=== PATIENT | male | born 1965 | race Caucasian/White ===

== ENCOUNTER 2020-06-17 13:13 | Inpatient (IN) | payer BC ==
[~2020-06-17] VITALS: Ht 182.9 cm; Wt 109.8 kg
[2020-06-17 13:54] VITALS: BP 136/88
[2020-06-17] MEDS ORDERED: METOPROLOL IV PUSH 5 MG/5 ML VIAL. IVP ONE (14:00)
[2020-06-17] MEDS: MORPHINE SULFATE 2 MG/ML VIAL. IV PRN ×2 (14:16→20:36)
--- NOTE | 2020-06-17 14:26 | RAD ---
EXAM: XR CHEST 1V 06/17/2020 2:00 PM CLINICAL INDICATION: Chest pain COMPARISON: None TECHNIQUE: AP upright view the chest FINDINGS: The heart and mediastinum are normal. Lungs are adequately expanded. No consolidation, ple ural effusion, or pneumothorax. No acute osseous abnormality. IMPRESSION: No acute cardiopulmonary abnormality. Electronically signed by: Mikaela Marquez MD (06/17/2020 2:23 PM) [id number]
[2020-06-17] MEDS ORDERED: METF10007 PO (15:00)
[2020-06-17] MEDS ORDERED: PREG100C PO (15:00)
[2020-06-17] MEDS ORDERED: TRAZ-118 PO (15:00)
[2020-06-17] MEDS ORDERED: PREG50CA91 PO (15:00)
[2020-06-17] MEDS ORDERED: LISI1TAB37 PO (15:00)
[2020-06-17] MEDS ORDERED: DIGOXIN IV 500 MCG/2 ML AMPUL. IV ONE (15:30)
[2020-06-17] MEDS ORDERED: DEXTROSE 50% 25 GM / 50ML DISP.SYRIN. IV PRN (15:30)
[2020-06-17 15:38] LABS: BASO # 0.1 x10^3/uL (0.0-0.2); BASO % 1 % (0-3); EOS # 0.4 x10^3/uL (0.0-0.7); EOS % 3 % (0-3); HEMATOCRIT 47.1 % (39.0-53.0); HEMOGLOBIN 16.1 g/dL (13.0-17.5); LYMPH # 3.6 x10^3/uL (1.0-4.8); LYMPH % 32 % (24-48); MEAN CORPUSCULAR HEMOGLOBIN 29 pg (25-35); MEAN CORPUSCULAR HGB CONC 34 g/dL (31-37); MEAN CORPUSCULAR VOLUME 86 fL (79-100); MONO # 0.9 x10^3/uL (0.0-1.1); MONO % 8 % (0-9); NEUT # 6.3 x10^3/uL (1.8-7.7); NEUT % 56 % (31-73); PLATELET COUNT 318 x10^3/uL (140-400); RED BLOOD COUNT 5.47 x10^6/uL (4.30-5.70); RED CELL DISTRIBUTION WIDTH 13.5 % (11.5-14.5); WHITE BLOOD COUNT 11.3 x10^3/uL (4.0-11.0)
[2020-06-17 15:41] LABS: BILIRUBIN,URINE NEGATIVE (NEG); CLARITY,URINE CLEAR; COLOR,URINE YELLOW; NITRITE,URINE NEGATIVE (NEG); PH,URINE 7.5 (<5.0-8.0); PROTEIN,URINE NEGATIVE (NEG-TRACE); UROBILINOGEN,URINE 0.2 mg/dL (0.2 mg/dL)
[2020-06-17 15:47] LABS: BARBITURATES NEG (NEG); BENZODIAZEPINES NEG (NEG); CANNABINOIDS POS (NEG); COCAINE NEG (NEG); METHADONE NEG (NEG); OPIATES POS (NEG); PHENCYCLIDINE NEG (NEG)
[2020-06-17 15:48] LABS: AMPHETAMINE/METHAMPHETAMINE NEG (NEG)
[2020-06-17] MEDS: METOPROLOL TART IMMED RELEASE 25 MG TABLET. PO SCH ×3 (16:09→23:53)
[2020-06-17] MEDS ORDERED: ASPIRIN ENTERIC COATED 325 MG TABLET.DR. PO ONE (16:15)
--- NOTE | 2020-06-17 16:23 | PDOC2 ---
CHAVA AGUILLON INSOLE BOTTOM FILLER 06/17/20 1623: CARDIAC CONSULT DATE OF CONSULT Date of Consult DATE: 06/17/20 TIME: 15:23 REASON FOR CONSULT Reason for Consult: Chest pain, tachy REFERRING PHYSICIAN Referring Physician: Valentin SOURCE Source: Chart review, Patient HISTORY OF PRESENT ILLNESS HISTORY OF PRESENT ILLNESS This is a pleasant 55 yo male admitted for complains of chest pain and palpitations. Reports that he was having midchest burning pressure this morning and palpitations. No nausea or vomiting. No fever or chills. He was then seen in the PCPs office and was told to go to the hospital. His HR was in the 140s and upon EKG he was on atrial flutter. He was seen in 05/13/2020 at PCPs office due to neuropathy symptoms and high BP with his DM for the first time as he has not seen a Dr. in about 8 yrs. At that time he was noted with HR in the 120s but reported no EKG was performed at that time. He has known DM2, HTN and HLP but has not medicated self since about 8 yrs ago as he did not like some of the side effects such as diarrhea particularly the metformin. Since last yr he has been checking his BP with his mothers BP machine and sometimes notes his SBP in the 200s. Also noted that his HR is in the 140s at times. The last he checked his readings was 2 weeks and it was the same. 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 His chest discomfort has been going on in the last 2 months. No falls, passing out or frequent dizziness. No diaphoresis, jaw tightness or arm heaviness this morning when he had his symptoms. He did have bilateral HAs at times. Reports of intermittent episodes of light flashes and dark spots and loss of vision to the outer part of his right eye visual field and last time this happened was a week ago and started about a month ago. The last he was checked by an eye doctor was 06/2019. Denies any past hx of CAD, VTE, bleeding issues, arrhythmias, CVA. No prior MVA. He did fall about a week ago but no injury and this is due to his leg dropping into a hole in the ground. No anosmia, ageusia, and no respiratory symptoms. No known prior exposure to Covid- 19 PAST MEDICAL HISTORY Cardiovascular: HTN, Hyperlipidemia Pulmonary: No pertinent hx CENTRAL NERVOUS SYSTEM: Carpal Tunnel Syndrome, Periperal neuropathy GI: No pertinent hx Heme/Onc: No pertinent hx Hepatobiliary: No pertinent hx Psych: No pertinent hx Musculoskeletal: Osteoarthritis Rheumatologic: No pertinent hx Infectious disease: Other (perineal abscess) ENT: No pertinent hx Renal/: Chronic renal insuff Endocrine: Diabetes (2) Dermatology: No pertinent hx PAST SURGICAL HISTORY Past Surgical History: Tonsillectomy FAMILY HISTORY Family History: Coronary Artery Disease (mother and cardiac arrest in her 60s), Other (brain aneursys grandmother) SOCIAL HISTORY Smoke: 1 pack per day (>20 yrs) ALCOHOL: other (1-2 beer daily) Drugs: Marijuana Lives: with Family CURRENT MEDICATIONS CURRENT MEDICATIONS Current Medications Medications (Trade) Dose Ordered Sig/Sukumar Route PRN Reason Start Time Stop Time Status Last Admin Dose Admin Metoprolol Tartrate (Lopressor Vial) 5 mg 1X ONCE IVP 06/17/20 14:00 06/17/20 14:03 DC 06/17/20 14:14 Morphine Sulfate (Morphine Sulfate) 2 mg PRN Q2HR PRN IV PAIN 06/17/20 14:15 06/17/20 14:16 ALLERGIES ALLERGIES: Coded Allergies: No Known Drug Allergies (Unverified , 06/17/20) ROS Review of System 14 point ROS evaluated with pertinent positives noted per HPI PHYSICAL EXAM General: Alert, Oriented X3, Cooperative, No acute distress HEENT: Atraumatic, Mucous membr. moist/pink Lungs: Clear to auscultation, Normal air movement Heart: Regular rate (atrial flutter with RVR), No murmurs Abdomen: Soft, No tenderness Extremities: No cyanosis, No edema Skin: Other (RLE abrasions from fall) Neuro: Normal speech, Sensation intact Psych/Mental Status: Mental status NL, Mood NL MUSCULOSKELETAL: Osteoarthritic changes both hands VITALS/I&O VITALS/I&O: Vital Signs Date Time Temp Pulse Resp B/P (MAP) Pulse Ox O2 Delivery O2 Flow Rate FiO2 06/17/20 14:46 97 Room Air 06/17/20 14:29 134 06/17/20 13:54 97.5 18 136/88 (104) 97.5 STRESS TEST STRESS TEST [facility] 07/2009 RESTING 2D ECHO Left Ventricular Ejection Fraction: 55% Mild Concentric Left Ventricular Hypertrophy Normal Left Ventricular Size Mild Left Atrial Enlargement Normal Right Ventricular Size Normal Right Atrial Size Normal Aortic Valve Normal Mitral Valve Normal Tricuspid Valve Normal Pulmonic Valve No Effusions, Masses or Thrombi LB PROTOCOL STRESS ECG Baseline ECG: Sinus Rhythm. HR: 91 bpm. BP: 152/88 mmHg. Exercise Duration: 8 minutes 00 seconds. Reason Test Stopped: Fatigue. HR Achieved: 147 bpm (84% of Predicted Max HR). BP at Peak Stress: 200/78 mmHg. Workload Achieved: 10.1 METs. HR Recovery (1st Min): [address]-T Changes Noted With Exercise. Good Exercise Tolerance POST EXERCISE ECHO Hyperdynamic Left Ventricular Response To Exercise Ejection Fraction Increases With Exercise Left Ventricular Volume Decreases No New Regional Wall Motion Abnormalities SUMMARY Normal Blood Pressure And Heart Rate Response To Stress Normal Stress Electrocardiogram Normal Stress Echo Without Evidence For Ischemia Normal Ventricular Function With No Regional Wall Motion Abnormalities Valve Structures Are Unremarkable No Masses, Thrombi or Effusions Seen ASSESSMENT/PLAN ASSESSMENT/PLAN 1. Atrial flutter with RVR with underlying RBBB: new finding, likely has been going for a while 2. HTN: reported labile episodes at home 3. HLP 4. DM2 5. Tobaccoism 6. Obesity 7. CKD? 8. Noncompliance: no meds for at least 8 yrs until started by PCP on early May 2020 9. Marijuana use 10. Chest pain: possibly from RVR 11. Intermittent visual changes: presently ok but at times he loses vision to the outer part of his right eye and has flashes and black dot. No other neuro symptoms. Recommendations 1. TTE in AM when HR is controlled 2. UDS. Check TSH and lipids. CMP, CBC and INR. Trend troponin 3. Smoking cessation and marijuana cessation. Discussed compliance 4. Dig IV x1. Start on PO lopressor for rate control 25 mg q6. MR digoxin in 3 hrs if refractory 5. Head CT and rule out CVA. Will start on Heparin drip if CT negative and will reeval for NOAC tomorrow. 6. Consult opthalmology for further evaluation with noted visual changes. 7. Plan for outpt ischemic evaluation unless any significant changes to present cardiac w/u. 8. Complete workup and if no conversion to SR then will consider for outpt cardioversion. 9. DC ACEi/HCTZ to allow room for BB adjustment ROBYN FIGUEROA MD 06/18/20 0851: CARDIAC CONSULT ASSESSMENT/PLAN ASSESSMENT/PLAN Patient seen and examined 06/17/20. Agree with DRAWING IN MACHINE TENDER HELPER's assessment and plan. Atrial flutter, newly diagnosed with rapid ventricular response. Agree with digoxin and metoprolol for rate control. Start heparin infusion per protocol for stroke prophylaxis. CP with atypical features. Check 2D echo to assess LV systolic function and r/o WMA. Plan outpatient ischemic evaluation and possible cardioversion in 3 to 4 weeks. Thank you for your consultation. CHAVA AGUILLON APRN Jun 17, 2020 16:23 ROBYN FIGUEROA MD Jun 18, 2020 08:51
[2020-06-17 16:25] LABS: BACTERIA,URINE FEW /HPF (0-FEW); RBC,URINE 0 /HPF (0-2)
--- NOTE | 2020-06-17 16:32 | RAD ---
CT Head W/O Contrast: History: Reason: vision loss, rule out cva / Spl. Instructions: / History: Comparison: none Axial images were obtained without contrast. The ovalle and white matter appears normal and symmetrical for the patients age. There is no mass effe ct, extraaxial fluid collections or hydrocephalus. There is no gross bleed. There is no focal loss of ovalle-white matter distinction to suggest acute ischemia, i.e. stroke. Impression: No acute findings. RS Compliance Statement: One or more of the following individualized dose reduction techniques were utilized for this examinat ion: 1. Automated exposure control 2. Adjustment of the mA and/or kV according to patient size 3. Use of iterative reconstruction technique Electronically signed by: Jose Rivera III, MD (06/17/2020 4:30 PM) [facility]
[2020-06-17] MEDS: INSULIN LISPRO 300 UNITS/3 ML VIAL. SQ SCH (17:00)
[2020-06-17] MEDS ORDERED: HEPARIN 25,000UTS/250ML PREMIX 250 ML IV PRN (17:00)
[2020-06-17 18:21] VITALS: BP 126/74
[2020-06-17] MEDS ORDERED: ONDANSETRON PF 4 MG/2 ML VIAL. IVP PRN (21:00)
[2020-06-17] MEDS ORDERED: PREGABALIN 50 MG CAPSULE PO SCH (21:00)
[2020-06-17] MEDS: PREGABALIN 50 MG CAPSULE PO SCH (21:10)
[2020-06-17] MEDS: traZODone 50 MG TABLET. PO SCH (21:10)
[2020-06-17 22:23] VITALS: BP 114/79
[2020-06-17] MEDS: HEPARIN for IV BOLUS 10,000 UNIT/10 ML VIAL. IV PRN (22:38)
[2020-06-18 02:32] VITALS: BP 87/57
[2020-06-18] MEDS: MORPHINE SULFATE 2 MG/ML VIAL. IV PRN ×2 (04:49→14:09)
[2020-06-18] MEDS: HEPARIN for IV BOLUS 10,000 UNIT/10 ML VIAL. IV PRN (05:28)
[2020-06-18 07:00] VITALS: BP 124/64
[2020-06-18] MEDS: metFORMIN 500 MG TABLET PO SCH (08:00)
[2020-06-18] MEDS: INSULIN LISPRO 300 UNITS/3 ML VIAL. SQ SCH ×3 (08:00→16:41)
--- NOTE | 2020-06-18 08:00 | PDOC ---
CHAVA AGUILLON PLUMBING ASSEMBLER 06/18/20 0800: CARDIO Progress Notes Date and Time Date of Service 06/18/2020 Time of Evaluation 0940 Subjective Subjective: No Chest Pain, No shortness of breath, No Palpitations Vitals Vitals Vital Signs Date Time Temp Pulse Resp B/P (MAP) Pulse Ox O2 Delivery O2 Flow Rate FiO2 06/18/20 07:00 97.5 83 16 124/64 (84) 97 Room Air 97.5 Weight Weight [ ] Input and Output Intake and Output Intake and Output 06/18/20 07:00 Intake Total 360 ml Output Total 1400 ml Balance -1040 ml Intake Oral 360 ml Output Urine Total 1400 ml Laboratory Labs Laboratory Tests Test 06/17/20 14:20 06/17/20 14:55 06/17/20 16:08 06/17/20 16:45 White Blood Count 11.3 x10^3/uL (4.0-11.0) Red Blood Count 5.47 x10^6/uL (4.30-5.70) Hemoglobin 16.1 g/dL (13.0-17.5) Hematocrit 47.1 % (39.0-53.0) Mean Corpuscular Volume 86 fL (79-100) Mean Corpuscular Hemoglobin 29 pg (25-35) Mean Corpuscular Hemoglobin Concent 34 g/dL (31-37) Red Cell Distribution Width 13.5 % (11.5-14.5) Platelet Count 318 x10^3/uL (140-400) Neutrophils (%) (Auto) 56 % (31-73) Lymphocytes (%) (Auto) 32 % (24-48) Monocytes (%) (Auto) 8 % (0-9) Eosinophils (%) (Auto) 3 % (0-3) Basophils (%) (Auto) 1 % (0-3) Neutrophils # (Auto) 6.3 x10^3/uL (1.8-7.7) Lymphocytes # (Auto) 3.6 x10^3/uL (1.0-4.8) Monocytes # (Auto) 0.9 x10^3/uL (0.0-1.1) Eosinophils # (Auto) 0.4 x10^3/uL (0.0-0.7) Basophils # (Auto) 0.1 x10^3/uL (0.0-0.2) Prothrombin Time 13.0 SEC (11.7-14.0) Prothromb Time International Ratio 1.0 (0.8-1.1) Activated Partial Thromboplast Time 30 SEC (24-38) Magnesium Level 2.3 mg/dL (1.8-2.4) Troponin I Quantitative < 0.017 ng/mL (0.000-0.055) < 0.017 ng/mL (0.000-0.055) Thyroid Stimulating Hormone (TSH) 2.476 uIU/mL (0.358-3.74) Urine Collection Type Unknown Urine Color Yellow Urine Clarity Clear Urine pH 7.5 (<5.0-8.0) Urine Specific [place] 1.025 (1.000-1.030) Urine Protein Negative mg/dL (NEG-TRACE) Urine Glucose (UA) >=1000 mg/dL (NEG) Urine Ketones (Stick) Negative mg/dL (NEG) Urine Blood Negative (NEG) Urine Nitrite Negative (NEG) Urine Bilirubin Negative (NEG) Urine Urobilinogen Dipstick 0.2 mg/dL (0.2 mg/dL) Urine Leukocyte Esterase Negative (NEG) Urine RBC 0 /HPF (0-2) Urine WBC 1-4 /HPF (0-4) Urine Squamous Epithelial Cells Occ /LPF Urine Bacteria Few /HPF (0-FEW) Urine Opiates Screen Pos (NEG) Urine Methadone Screen Neg (NEG) Urine Barbiturates Neg (NEG) Urine Phencyclidine Screen Neg (NEG) Urine Amphetamine/Methamphetamine Neg (NEG) Urine Benzodiazepines Screen Neg (NEG) Urine Cocaine Screen Neg (NEG) Urine Cannabinoids Screen Pos (NEG) Urine Ethyl Alcohol (NEG) Glucose (Fingerstick) 112 mg/dL (70-99) Test 06/17/20 21:05 06/17/20 21:55 06/18/20 04:22 06/18/20 05:15 Heparin Anti-Xa Act, Unfractionated < 0.10 IU/mL (0.30-0.70) < 0.10 IU/mL (0.30-0.70) < 0.10 IU/mL (0.30-0.70) Troponin I Quantitative < 0.017 ng/mL (0.000-0.055) Glucose (Fingerstick) 134 mg/dL (70-99) Triglycerides Level 206 mg/dL (0-150) Cholesterol Level 206 mg/dL (0-200) LDL Cholesterol, Calculated 113 mg/dL (0-100) VLDL Cholesterol, Calculated 41 mg/dL (0-40) Non-HDL Cholesterol Calculated 154 mg/dL (0-129) HDL Cholesterol 52 mg/dL (40-60) Cholesterol/HDL Ratio 4.0 Test 06/18/20 05:31 06/18/20 07:01 Glucose (Fingerstick) 187 mg/dL (70-99) 144 mg/dL (70-99) Physical Exam HEENT: Neck Supple W Full Motion Chest: Symmetric LUNGS: Clear to Auscultation Heart: irregularly irregular (Aflutter) Abdomen: Soft N/T Extremities: No Edema, No Calf Tenderness Neurology: alert, oriented, follow commands Assessment Assessment 1. Atrial flutter with RVR with underlying RBBB: new finding, likely has been going for a while. presently rate controlled 2. HTN: reported labile episodes at home. currently controlled 3. HLP 4. DM2 5. Tobaccoism 6. Obesity 7. Noncompliance: no meds for at least 8 yrs until started by PCP on early May 2020 9. Marijuana use 10. Chest pain: possibly from RVR. Trops nml 11. Intermittent visual changes: presently ok but at times he loses vision to the outer part of his right eye and has flashes and black dot. No other neuro symptoms. Head CT neg for acute changes 12. Possible cardiomyopathy: possibly tachy mediated. Await full TTE report Recommendations 1. Start toprol XL at 100 mg daily. Will restart lisinopril at lower dose once BP trend is noted. No HCTZ. Lasix PRN 2. Smoking cessation and marijuana cessation. Discussed compliance 3. DC heparin, will start on eliquis 4. Consult opthalmology for further evaluation with noted visual changes. 5. Plan for outpt ischemic evaluation 6. Plan for outpt CVN 7. DM optimization per PCP start on statin Justicifation of Admission Dx: Justifications for Admission: Justification of Admission Dx: Yes ROBYN FIGUEROA MD 06/18/20 1721: CARDIO Progress Notes Assessment Assessment Patient seen and examined. Agree with GRADES 1 THRU 5 TEACHER's assessment and plan. Atrial flutter, newly diagnosed with rapid ventricular response, presently with well-controlled heart rate.. Agree with starting Toprol and stop hydrochlorothiazide. We will stop heparin infusion and start Eliquis for stroke prophylaxis. CP with atypical features. 2D echo showed normal LV function without any wall motion abnormalities. Plan outpatient ischemic evaluation and possible cardioversion in 3 to 4 weeks. CHAVA AGUILLON APRN Jun 18, 2020 08:00 ROBYN FIGUEROA MD Jun 18, 2020 17:21
[2020-06-18 08:13] LABS: ALBUMIN 3.4 g/dL (3.4-5.0); ALBUMIN/GLOBULIN RATIO 1.2 (1.0-1.7); CALCIUM 8.8 mg/dL (8.5-10.1); CREATININE 0.8 mg/dL (0.7-1.3); GFR 100.4; POTASSIUM 4.3 mmol/L (3.5-5.1); TOTAL BILIRUBIN 0.4 mg/dL (0.2-1.0); TOTAL PROTEIN 6.2 g/dL (6.4-8.2)
[2020-06-18] MEDS ORDERED: hydroCHLOROthiazide 12.5 MG CAPSULE PO SCH (09:00)
[2020-06-18] MEDS ORDERED: LISINOPRIL 20 MG TABLET PO SCH (09:00)
[2020-06-18] MEDS: METOPROLOL TART IMMED RELEASE 25 MG TABLET. PO SCH (09:19)
[2020-06-18] MEDS: PREGABALIN 50 MG CAPSULE PO SCH ×2 (09:19→21:09)
[2020-06-18 10:37] VITALS: BP 141/74
[2020-06-18] MEDS ORDERED: METOPROLOL SUCC 24HR ER 100 MG TAB.ER.24H. PO ONE (11:30)
[2020-06-18] MEDS ORDERED: ANTI-COAG MONITOR BY PHARMACY. MC PRN (11:45)
[2020-06-18] MEDS ORDERED: FUROSEMIDE 40 MG TABLET. PO PRN (11:45)
--- NOTE | 2020-06-18 11:48 | HP ---
ADMIT DATE: 06/17/2020 CHIEF COMPLAINT AND HISTORY OF PRESENT ILLNESS: This 65-year-old white male admitted through our office by my associate yesterday because of tachycardia and symptomatology with the same including some chest discomfort when his heart was racing as well as shortness of breath. He did have an EKG in the office with a heart rate in the 140s, appeared to be sinus on EKG there. PAST MEDICAL HISTORY: Documented includes basically diabetes, hyperlipidemia, hypertension without any significant history of arrhythmias noted. Does have osteoarthritis, history of perineal abscess and peripheral neuropathy. MEDICATIONS: Brought with the patient listed on the computer, have been addressed. ALLERGIES: He has no known drug allergies. SOCIAL HISTORY: He smokes 1 pack per day over 20 years, 1-2 beers daily. Smokes marijuana. Lives at home with family. FAMILY HISTORY: Positive for coronary artery disease. REVIEW OF SYSTEMS: As mentioned above. PHYSICAL EXAMINATION: GENERAL: He is a well-developed, well-nourished white male, in no acute distress. VITAL SIGNS: Stable. He is afebrile. He has been intermittently tachycardic and has had multiple medications to slow heart rate since admission where it was found to be atrial flutter with rapid ventricular response. This has been limited by lower blood pressures with medicines to slow his rate. HEAD, EYES, EARS, NOSE AND THROAT: Unremarkable. NECK: Supple, without adenopathy or thyromegaly. CHEST: Clear to auscultation and percussion. HEART: Regular rate. Slightly tachycardic without S3, S4 or murmur. ABDOMEN: Soft, nontender, without hepatosplenomegaly or masses. EXTREMITIES: Without cyanosis, clubbing, or edema. NEUROLOGIC: Intact. IMPRESSION: 1. Atrial flutter with rapid ventricular response and symptomatology secondary to same. 2. Hyperlipidemia. 3. Hypertension. 4. Diabetes. PLAN: Cardiology consultation, rate control. Ischemic workup as they feel necessary. ADRY MALDONADO MD DR: VITA/tani JOB#: [id number] / [id number]
[2020-06-18] MEDS: APIXABAN 5 MG TABLET. PO SCH ×2 (12:04→21:07)
--- NOTE | 2020-06-18 12:19 | CARD ---
MR#: [id number] Date of Study: 06/18/2020 Ordering Physician: CHAVA AGUILLON, Referring Physician: CHAVA AGUILLON Tech: Valeri Kerns [facility] APPROVED REPORT EXAM: Two-dimensional and M-mode echocardiogram with Doppler and color Doppler. Other Information Quality : AverageHR: 104bpm Rhythm : Atrial Fibrillation INDICATION Atrial Fibrillation 2D DIMENSIONS RVDd4.3 (2.9-3.5cm)Left Atrium(2D)4.0 (1.6-4.0cm) IVSd1.2 (0.7-1.1cm)Aortic Root(2D)3.3 (2.0-3.7cm) LVDd4.2 (3.9-5.9cm)LVOT Diameter2.0 (1.8-2.4cm) PWd1.2 (0.7-1.1cm)LVDs2.9 (2.5-4.0cm) FS (%) 30.6 %SV45.5 ml LVEF(%)58.6 (>50%) Aortic Valve AoV Peak Pee.124.8cm/sAoV VTI19.6cm AO Peak GR.6.2mmHgLVOT Peak Pee.95.4cm/s AO Mean GR.3mmHgAVA (VMAX)2.52cm2 Pulmonary Valve PV Peak Bxodyoup01.7cm/s Tricuspid Valve TR P. Rluaipto988pc/sTR Peak Gr.16mmHg LEFT VENTRICLE The left ventricle is normal size. There is mild concentric left ventricular hypertrophy. The left ve ntricular systolic function is normal. Estimated ejection fraction 55%. There is normal LV segmental wall motion. Unable to determine. RIGHT VENTRICLE The right ventricle is normal size. The right ventricle is mildly hypertrophied. Systolic function is borderline reduced. ATRIA The left atrium size is normal. The right atrium is mildly dilated. The interatrial septum is intact with no evidence for an atrial septal defect or patent foramen ovale as noted on 2-D or Doppler imagi ng. AORTIC VALVE The aortic valve is normal in structure and function. Doppler and Color Flow revealed no significant aortic regurgitation. There is no significant aortic valvular stenosis. MITRAL VALVE The mitral valve is normal in structure and function. There is no evidence of mitral valve prolapse. There is no mitral valve stenosis. Doppler and Color-flow revealed mild mitral regurgitation. TRICUSPID VALVE The tricuspid valve is normal in structure and function. Doppler and Color Flow revealed trace tricus pid regurgitation. There is no tricuspid valve stenosis. PULMONIC VALVE The pulmonary valve is normal in structure and function. Doppler and Color Flow revealed no pulmonic valvular regurgitation. GREAT VESSELS The aortic root is normal in size. The ascending aorta is normal in size. The IVC is normal in size a nd collapses >50% with inspiration. PERICARDIAL EFFUSION There is no evidence of significant pericardial effusion. Critical Notification Critical Value: No <Conclusion> The left ventricular systolic function is normal. Estimated ejection fraction 55%. There is normal LV segmental wall motion. Mild mitral regurgitation. Trace tricuspid regurgitation. There is no evidence of significant pericardial effusion. Signed by : River Melton, Electronically Approved : 06/18/2020 12:18:48
[2020-06-18 13:17] LABS: CALCIUM 8.9 mg/dL (8.5-10.1); CREATININE 0.8 mg/dL (0.7-1.3); GFR 100.4; POTASSIUM 4.4 mmol/L (3.5-5.1)
[2020-06-18 13:23] LABS: ALBUMIN 3.4 g/dL (3.4-5.0); TOTAL BILIRUBIN 0.5 mg/dL (0.2-1.0); TOTAL PROTEIN 6.9 g/dL (6.4-8.2)
[2020-06-18 14:36] VITALS: BP 141/87
[2020-06-18] MEDS: LISINOPRIL 5 MG TABLET. PO SCH (17:28)
[2020-06-18 18:19] VITALS: BP 141/105
[2020-06-18] MEDS ORDERED: ATORVASTATIN CALCIUM 20 MG TABLET PO SCH (21:00)
[2020-06-18] MEDS: traZODone 50 MG TABLET. PO SCH (21:09)
[2020-06-18 22:28] VITALS: BP 112/63
[2020-06-19] VITALS (11 sets, daily range): BP systolic 102–155; BP diastolic 73–107
[2020-06-19] MEDS ORDERED: IV RINGERS,LACTATED 1000ML 1,000 ML IV SCH (06:00)
[2020-06-19] MEDS ORDERED: HYDROmorphone 2 MG/ML VIAL IVP PRN (06:00)
[2020-06-19] MEDS ORDERED: fentaNYL PF VIAL 100 MCG/2 ML VIAL IVP PRN ×2 (06:00)
[2020-06-19] MEDS ORDERED: PROCHLORPERAZINE 10 MG/2 ML VIAL. IVP PRN (06:00)
[2020-06-19] MEDS ORDERED: MORPHINE SULFATE 2 MG/ML VIAL. IVP PRN (06:00)
[2020-06-19] MEDS ORDERED: LIDOCAINE 2% VISCOUS 15 ML SOLUTION. SWSW ONE (07:45)
[2020-06-19] MEDS ORDERED: LIDOCAINE 2% TOPICAL JELLY 30GM TUBE. TP ONE ×2 (07:45→09:11)
[2020-06-19] MEDS ORDERED: BENZOCAINE ONE 20% MUCOSAL SPRAY. MM (07:45)
[2020-06-19] MEDS: metFORMIN 500 MG TABLET PO SCH (07:47)
[2020-06-19] MEDS: INSULIN LISPRO 300 UNITS/3 ML VIAL. SQ SCH ×2 (07:47→12:00)
[2020-06-19] MEDS ORDERED: 0.9 % SODIUM CHLORIDE 10 ML DISP.SYRIN. IV PRN (08:15)
[2020-06-19] MEDS ORDERED: METOPROLOL SUCC 24HR ER 100 MG TAB.ER.24H. PO SCH (09:00)
[2020-06-19] MEDS ORDERED: LIDOCAINE 2% VISCOUS 15 ML SOLUTION. ONE (09:10)
[2020-06-19] MEDS ORDERED: PROPOFOL 10 MG/ML (20ML) VIAL. IV ONE (10:09)
[2020-06-19] MEDS ORDERED: LIDOCAINE 2% PF 5 ML VIAL. ONE (10:09)
--- NOTE | 2020-06-19 12:13 | EKG ---
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
[2020-06-19] MEDS: PREGABALIN 50 MG CAPSULE PO SCH (12:48)
[2020-06-19] MEDS: LISINOPRIL 5 MG TABLET. PO SCH (12:48)
[2020-06-19] MEDS: APIXABAN 5 MG TABLET. PO SCH (12:48)
--- NOTE | 2020-06-19 13:26 | PN ---
DATE: 06/19/2020 LOCATION: He is in Room 207. SUBJECTIVE: This 55-year-old white male remains hospitalized with atrial flutter with a rapid ventricular response. He still is going in the 130s and is planned for cardioversion later today. Cardiology is following along with multiple medicines to try to control this, but it has been difficult to control. He still has intermittent episodes of some chest discomfort and arm discomfort with it. He feels like to monitor at times those are happening, that there may be some pauses on the monitor at those times, but nothing was reported that would suggest anything different in the atrial flutter. OBJECTIVE: VITAL SIGNS: Stable. He is afebrile. GENERAL: He is awake and alert. CHEST: Clear. HEART: Tachycardic in the 130s, but regular. ABDOMEN: Benign. EXTREMITIES: No significant edema. IMPRESSION: 1. Atrial flutter with rapid ventricular response with inability to control so far well with medication. 2. Diabetes with decent blood sugars. PLAN: Cardioversion later today, and hopefully, he will cardiovert and stay ____ the rhythm. If not, he is probably going to need some sort of electrophysiological evaluation for the same. ADRY MALDONADO MD DR: VITA/tani JOB#: [id number] / [id number]
--- NOTE | 2020-06-19 13:41 | PDOC4 ---
Procedure Note Procedure: Successful ARLEY guided external cardioversion Indications: Atrial flutter with rapid ventricle response Complications: None Procedural Details: An informed consent was obtained from patient. After patient was administered intravenous propofol by anesthesiology team, transesophageal echocardiogram probe was inserted and standard tomographic images were obtained (reported separately) that ruled out obvious intracardiac thrombus. Patient was then given 150 J of synchronized biphasic DC shock therapy with successful conversion of patient rhythm from atrial flutter to sinus rhythm. He tolerated the procedure well. He was hemodynamically stable without any neurological deficits at the end of procedure. There were no immediate complications. Conclusions: Successful ARLEY guided external cardioversion of patient's atrial flutter to sinus rhythm. ROBYN FIGUEROA MD Jun 19, 2020 13:41
--- NOTE | 2020-06-19 14:11 | CARD ---
MR#: [id number] Date of Study: 06/19/2020 Ordering Physician: CHAVA AGUILLON, Referring Physician: CHAVA AGUILLON, Tech: Clara Alcala, [facility] APPROVED REPORT EXAM: Transesophageal echocardiogram with color flow Doppler and Synchronized Cardioversion. INDICATION Atrial Fibrillation RISK FACTORS Hypertension Hyperlipidemia Diabetes Smoking Reason For Test : Rule out Intracardiac Thrombus. PROCEDURE After obtaining informed consent, patient underwent transesophageal echo in the PACU. Type of Sedation : General Anesthesia Sedation was administered by Ed Lind. Sedation was achieved with Propofol 160mg intravenously. Transesophageal probe was inserted and advanced into esophagus by River Melton MD. The ARLEY was performed without complications. Synchronized Cardioversion acheived with Joules after 1 attempt(s). Rhythm following Synchronized Cardioversion: Normal Sinus Rhythm Throughout the procedure, the blood pressure, pulse oximetry, cardiac rhythm, and rate were monitored . The patient tolerated the procedure without adverse effects. Recovery from general anesthesia was une ventful and vital signs were stable. LEFT VENTRICLE The left ventricle is normal size. There is borderline to mild concentric left ventricular hypertroph y. The left ventricular systolic function is lower limits of normal. The Ejection Fraction is 50%. Th ere is normal LV segmental wall motion. No left ventricle thrombus noted on this study. RIGHT VENTRICLE The right ventricle is normal size. The right ventricle is borderline hypertrophied. The right ventri cular systolic function is normal. ATRIA The left atrium size is normal. The right atrium size is normal. The interatrial septum is intact wit h no evidence for an atrial septal defect or patent foramen ovale as noted on 2-D or Doppler imaging. There is no thrombus noted in the left atrial appendage. AORTIC VALVE The aortic valve is thickened but opens well. Doppler and Color Flow revealed no significant aortic r egurgitation. There is no significant aortic valvular stenosis. MITRAL VALVE The mitral valve is normal in structure and function. There is no evidence of mitral valve prolapse. There is no mitral valve stenosis. Doppler and Color-flow revealed mild mitral regurgitation. TRICUSPID VALVE The tricuspid valve is normal in structure and function. Doppler and Color Flow revealed trace tricus pid regurgitation. There is no tricuspid valve prolapse or vegetation. There is no tricuspid valve st enosis. PULMONIC VALVE The pulmonary valve is normal in structure and function. There is no pulmonic valvular stenosis. GREAT VESSELS The aortic root is normal in size. PERICARDIAL EFFUSION There is no evidence of significant pericardial effusion. Critical Notification Critical Value: No <Conclusion> The left ventricular systolic function is lower limits of normal. The Ejection Fraction is 50%. Mild mitral regurgitation. Trace tricuspid regurgitation. There is no evidence of significant pericardial effusion. No intracardiac thrombus or vegetation. Signed by : River Melton, Electronically Approved : 06/19/2020 14:11:06
[2020-06-19] MEDS ORDERED: METO100T5 PO (14:58)
[2020-06-19] MEDS ORDERED: APIX5TAB PO (14:58)
[2020-06-19] MEDS ORDERED: ATOR20TA58 PO (14:58)
[2020-06-19] MEDS ORDERED: LISI-517 PO (14:58)
== END 2020-06-19 16:05 | disposition home or self-care (01) | DRG 310 ==
LOC: 2 NORTH 13:13
PROVIDERS: ADMIT Family Medicine; ATTEND Family Medicine
PROC: 5A2204Z Restoration of Cardiac Rhythm, Single (ICD-10-PCS; principal; 2020-06-19 10:30)
PROC: B246ZZ4 Ultrasonography of Right and Left Heart, Transesophageal (ICD-10-PCS; 2020-06-19 10:30)
DX: I48.92 Unspecified atrial flutter (principal); I12.9 Hypertensive chronic kidney disease with stage 1 through stage 4 chronic kidney disease, or unspecified chronic kidney disease; E11.22 Type 2 diabetes mellitus with diabetic chronic kidney disease; E66.9 Obesity, unspecified; E78.5 Hyperlipidemia, unspecified; F12.90 Cannabis use, unspecified, uncomplicated; F17.210 Nicotine dependence, cigarettes, uncomplicated; I45.10 Unspecified right bundle-branch block; N18.9 Chronic kidney disease, unspecified; Z20.822 Contact with and (suspected) exposure to COVID-19; M19.90 Unspecified osteoarthritis, unspecified site; E11.42 Type 2 diabetes mellitus with diabetic polyneuropathy; Z82.41 Family history of sudden cardiac death; Z82.49 Family history of ischemic heart disease and other diseases of the circulatory system; Z91.19 Patient's noncompliance with other medical treatment and regimen; Z68.32 Body mass index [BMI] 32.0-32.9, adult
CPT/HCPCS: 36415; 70450; 71045; 80053; 80061; 80307; 81001; 82962; 83735; 84443; 84484; 85025; 85520; 85610; 85730; 87426; 93005; 93306; 93312; 93320; 93325; J1160; J1644; J2270; J2405; J2704; J3490; J7120; U0003; G0378

== ENCOUNTER → 2020-08-11 | Outpatient (CLI) | payer BC ==
[2020-06-19 14:35] VITALS: BP 125/84
[~2020-08-11] MED LIST: APIX5TAB PO; ATOR20TA58 PO; LISI-517 PO; LISI1TAB37 PO; METF10007 PO; METO100T5 PO; PREG100C PO; PREG50CA91 PO; REGADENOSON 0.4 MG/5 ML DISP.SYRIN. IV ONE; TRAZ-118 PO
--- NOTE | 2020-08-11 16:26 | RAD ---
MR#: [id number] Date of Study: 08/11/2020 Ordering Physician: ROBYN FIGUEROA, Referring Physician: NATACHA LEIVA Tech: Tri Guzman RT (R) (N) APPROVED REPORT Test Type: Pharmacological Stress Nurse/Tech: JOLIE MACARIO Test Indications: A-FIB Cardiac History: A-FIB, CARDIOVERSION, HTN, SMOKER- SEE EMR Medications: SEE EMR Medical History: SEE EMR Resting ECG: SR W/BBB Resting Heart Rate: 68 bpm Resting Blood Pressure: 118/72mmHg Pretest Chest Pain: No chest pain Nurse/Tech Notes S1,S2, LUNGS CTA, DENIED CP OR SOA, VSS. NO COMPLAINTS. Consent: The procedure was explained to the patient in lay terms. Informed consent was witnessed. Toñito eout was entered into [employer]. History and Stress Test performed by BLAIRE Cedeño, ARRT (R) (N) Pharm. Details Pharmacologic stress testing was performed using 0.4mg per 5ml of regadenoson given intravenously ove r 7-10 seconds. Stress Symptoms PT C/O FEELING A LITTLE "WOOZY" FOR THE FIRST COUPLE OF MINUTES, SYMPTOMS RESOLVED. VITALS REMAINED S TAPLE, NO FURTHER COMPLAINTS. OCCASSIONAL PVC NOTED. POST EXERCISE Reason for Termination: Infusion complete Max HR: 127 bpm Max Blood Pressure: 131/69mmHg Blood Pressure response to exercise: Normal blood pressure response during stress. Heart Rate response to exercise: WNL Chest Pain: No. Arrhythmia: No. NO SIGNIFICANT CHANGES NOTED FROM BASELINE EKG. ST Change: No. INTERPRETATION Stress EKG Conclusion: The resting EKG shows a sinus rhythm with an incomplete right bundle branch bl ock. The stress EKG shows no significant changes from baseline. No EKG evidence of stress-induced ischemia. Imaging Protocol IMAGE PROTOCOL: Rest Tc-99m/stress Tc-99m 1 day Rest: Stress: Viability: Radiopharm.Tc99m OsrejfhdyZn86l Sestamibi Eqqc97xZy 32mCi Duration 15min. 10min. Img Date 08/11/2020 08/11/2020 Inj-Img Mynm74gjq. 60min. Rest Admin Site:IV - Left ForearmAdministrator:Tri Guzman, RT (R)(N) Stress Admin Site: IV - Left ForearmAdministrator: BLAIRE Cedeño, ARRT (R)(N) STRESS DATA End Diast. Vol.127.0mlAv. Heart Rate85.0bpm End Syst. Vol.32.0mlCO Index BSA0.0L/min Myocardial Ausg506.0gEject. Uavapbax41.0% Stress Rates Pk. Fill Rate3.99EDV/secLVtime Pk. Fill 184.43msec Pk. Empty Rate4.96ESV/secLVtime Pk. Oaqeo797.06msec 05/10 Pk. Fill1.33EDV/sec Stress Scores Regional WT0.00Summed WT0.00 Regional WM0.00Summed WM0.00 LV Perfusion The stress scans show no significant defects. The rest scans show no significant defects. Nuclear imaging shows no reversible ischemia or infarct. Wall Motion Left ventricular systolic function is normal with no regional wall motion abnormalities and an ejecti on fraction of greater than 79%. LV Perf. Quant 17 Seg. SSS0.00 17 Seg. SRS1.00 17 Seg. SDS0.00 Stress Defect Extent (% LAD)0.00Rest Defect Extent (% LAD)0.00Rev. Defect Extent (% LAD)0.00 Stress Defect Extent (% LCX) 0.00Rest Defect Extent (% LCX)0.00Rev. Defect Extent (% LCX)0.00 Stress Defect Extent (% RCA)0.00Rest Defect Extent (% RCA)6.70Rev. Defect Extent (% RCA)0.00 Stress Defect Extent (% KEVIN)0.00Rest Defect Extent (% KEVIN)1.30Rev. Defect Extent (% KEVIN)0.00 Conclusion 1. No EKG evidence of stress-induced ischemia. 2. Nuclear imaging shows no reversible ischemia or infarct. 3. Left ventricular systolic function is normal with no regional wall motion abnormalities and an eje ction fraction of greater than 70%. 4. Low risk Lexiscan nuclear stress test. Signed by : Scooter Cruz MD Electronically Approved : 08/11/2020 16:26:22
== END ==
LOC: NM 09:23
PROVIDERS: ATTEND Internal Medicine Cardiovascular Disease
DX: I45.19 Other right bundle-branch block (principal); I48.91 Unspecified atrial fibrillation; I10 Essential (primary) hypertension; F17.200 Nicotine dependence, unspecified, uncomplicated
CPT/HCPCS: 78452; 93017; A9500; J2785

== ENCOUNTER 2020-09-19 17:23 | Observation (INO) | payer BC, OTHER ==
[~2020-09-19] VITALS: Ht 180.3 cm; Wt 100.7 kg
[~2020-09-19 17:23] MED LIST changes: -REGADENOSON 0.4 MG/5 ML DISP.SYRIN. IV ONE
--- NOTE | 2020-09-19 17:42 | PHYS DOC ---
Past Medical History Smoking Status: Current Every Day Smoker General Adult EDM: Chief Complaint: CHEST PAIN HPI: HPI: Patient is a 55 year old male past medical history hypertension diabetes A. fib status post cardioversion presents with a chief complaint of chest pain. Patient states chest pain started 3 days ago approximately 0700 hours. Patient states pain is in his left chest described as a burning sensation. Patient stating pain has been constant but fluctuates in intensity since onset. Patient states pain occasionally radiates to his back. Patient has had associated nausea vomiting and diarrhea. Patient states today he is vomited approximately 10 times and has had one episode of diarrhea. Patient states his current pain is 6 out of 10. Patient had a cardioversion for his A. fib in June. Patient is currently on Eliquis. Review of Systems: Review of Systems: Constitutional: Denies fever or chills. [] Eyes: Denies change in visual acuity. [] HENT: Denies nasal congestion or sore throat. [] Respiratory: Denies cough or shortness of breath. [] Cardiovascular: Denies chest pain or edema. [] GI: Denies abdominal pain, nausea, vomiting, bloody stools or diarrhea. [] : Denies dysuria. [] Musculoskeletal: Denies back pain or joint pain. [] Integument: Denies rash. [] Neurologic: Denies headache, focal weakness or sensory changes. [] Endocrine: Denies polyuria or polydipsia. [] Lymphatic: Denies swollen glands. [] Psychiatric: Denies depression or anxiety. [] Heart Score: C/O Chest Pain: Yes HEART Score for Chest Pain: HEART Score for Chest Pain Response (Comments) Value History Moderately Suspicious 1 ECG Nonspecific Repolarizatio 1 Age >45 - < 65 1 Risk Factors 1 or 2 Risk Factors 1 Troponin < Normal Limit 0 Total 4 Risk Factors: Risk Factors: DM, Current or recent (<one month) smoker, HTN, HLP, family history of CAD, obesity. Risk Scores: Score 0 - 3: 2.5% MACE over next 6 weeks - Discharge Home Score 4 - 6: 20.3% MACE over next 6 weeks - Admit for Clinical Observation Score 7 - 10: 72.7% MACE over next 6 weeks - Early Invasive Strategies Allergies: Allergies: Allergies Coded Allergies Type Severity Reaction Last Updated Verified No Known Drug Allergies 06/17/20 No Physical Exam: PE: Constitutional: Well developed, well nourished, no acute distress, non-toxic appearance. [] HENT: Normocephalic, atraumatic, bilateral external ears normal, oropharynx moist, no oral exudates, nose normal. [] Eyes: PERRLA, EOMI, conjunctiva normal, no discharge. [] Neck: Normal range of motion, no tenderness, supple, no stridor. [] Cardiovascular:Heart rate regular rhythm, no murmur [] Lungs & Thorax: Bilateral breath sounds clear to auscultation [] Abdomen: Bowel sounds normal, soft, no tenderness, no masses, no pulsatile masses. [] Skin: Warm, dry, no erythema, no rash. [] Back: No tenderness, no CVA tenderness. [] Extremities: No tenderness, no cyanosis, no clubbing, ROM intact, no edema. [] Neurologic: Alert and oriented X 3, normal motor function, normal sensory function, no focal deficits noted. [] Psychologic: Affect normal, judgement normal, mood normal. [] EKG: EKG: [] EKG performed at 526 hours heart rate [address] elevation no ST depression no acute NE Radiology/Procedures: Radiology/Procedures: [] Impression: IMPRESSION: There is no acute cardiopulmonary process. There is a soft tissue nodule in the right midlung measuring 1.5 cm, stable. Further characterization with CT chest is recommended. Electronically signed by: June Chu MD (09/19/2020 5:53 PM) [facility] Course & Med Decision Making: Course & Med Decision Making Pertinent Labs and Imaging studies reviewed. (See chart for details) [] Patient was evaluated for chief complaint. Work-up consisted of laboratory analysis EKG and radiologic imaging. Results reviewed and discussed with patient. Patient's troponin within normal limits EKG no acute ischemic changes. Chest x-ray right lung nodule radiologist recommended CT imaging for further evaluation. 1900 hrs. patient informed nursing that chest pain had intensified. Patient stated pain was a 10 out of 10. Nitroglycerin and morphine were ordered. Reevaluation at 1950. Patient states prior to receiving pain medication his chest pain had resolved. I discussed admission to the hospital. Discussed patient with Dr. Hanson who would accepted admission. Consult placed to cardiology. Elena Disclaimer: Elena Disclaimer: This electronic medical record was generated, in whole or in part, using a voice recognition dictation system. Departure Departure Impression: Primary Impression: Chest pain Additional Impressions: Nausea & vomiting Diarrhea Lung nodule Disposition: ADMITTED INPATIENT Admitting Physician: Jorge Hanson Condition: STABLE Referrals: DANDY ALVES MD (PCP) KAYY CHERRY DO September 19, 2020 17:42
[2020-09-19] MEDS ORDERED: FAMOTIDINE 20 MG/2 ML VIAL IVP ONE (17:45)
[2020-09-19] MEDS ORDERED: ASPIRIN CHEWABLE 81 MG TABLET. PO ONE (17:45)
[2020-09-19] MEDS ORDERED: ONDANSETRON PF 4 MG/2 ML VIAL. IVP ONE (17:45)
[2020-09-19] MEDS ORDERED: IV NORMAL SALINE 1000ML BAG 1,000 ML IV ONE (17:45)
[2020-09-19 17:54] LABS: BASO % 0 % (0-3); EOS % 0 % (0-3); HEMATOCRIT 45.7 % (39.0-53.0); HEMOGLOBIN 15.8 g/dL (13.0-17.5); LYMPH # 1.2 x10^3/uL (1.0-4.8); LYMPH % 9 % (24-48); MEAN CORPUSCULAR HEMOGLOBIN 29 pg (25-35); MEAN CORPUSCULAR HGB CONC 35 g/dL (31-37); MEAN CORPUSCULAR VOLUME 85 fL (79-100); MONO # 0.7 x10^3/uL (0.0-1.1); MONO % 5 % (0-9); NEUT # 11.5 x10^3/uL (1.8-7.7); NEUT % 86 % (31-73); PLATELET COUNT 361 x10^3/uL (140-400); RED BLOOD COUNT 5.38 x10^6/uL (4.30-5.70); RED CELL DISTRIBUTION WIDTH 13.1 % (11.5-14.5); WHITE BLOOD COUNT 13.5 x10^3/uL (4.0-11.0)
--- NOTE | 2020-09-19 17:55 | RAD ---
XR CHEST 1V 09/19/2020 5:51 PM INDICATION: Chest pain COMPARISON: 06/17/2020 TECHNIQUE: Portable frontal view of the chest is provided. FINDINGS: The cardiomediastinal silhouette is within normal limits. There is a nodular opacity in the right mid lung measuring 1.5 cm. There are no significant pleural effusions. There is no pulmonary vascular congestion. No pneumothora x. No suspicious osseous abnormality. IMPRESSION: There is no acute cardiopulmonary process. There is a soft tissue nodule in the right midlung measuring 1.5 cm, stable. Further characterization with CT chest is recommended. Electronically signed by: June Chu MD (09/19/2020 5:53 PM) [facility]
--- NOTE | 2020-09-19 18:02 | EKG ---
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
[2020-09-19 18:03] LABS: CALCIUM 9.2 mg/dL (8.5-10.1); CREATININE 0.9 mg/dL (0.7-1.3); GFR 87.6; POTASSIUM 4.1 mmol/L (3.5-5.1)
[2020-09-19 18:09] LABS: ALBUMIN/GLOBULIN RATIO 1.2 (1.0-1.7); TOTAL BILIRUBIN 0.7 mg/dL (0.2-1.0); TOTAL PROTEIN 7.3 g/dL (6.4-8.2)
[2020-09-19 18:31] LABS: % BANDS 6 % (0-9); % EOS 1 % (0-5); % LYMPHS 13 % (24-48); % MONOS 4 % (0-10); % SEGS 76 % (35-66)
[2020-09-19 18:32] LABS: PLT ESTIMATE ADEQUATE (ADEQUATE)
[2020-09-19] MEDS ORDERED: NITROGLYCERIN SUBLINGUAL 0.4 MG BOTTLE OF 25. SL PRN (19:00)
[2020-09-19] MEDS ORDERED: MORPHINE SULFATE 4 MG/ML VIAL. IV ONE (19:00)
[2020-09-19] MEDS ORDERED: ONDANSETRON PF 4 MG/2 ML VIAL. IV PRN (19:45)
[2020-09-19] MEDS ORDERED: MORPHINE SULFATE 4 MG/ML VIAL. IV PRN (19:45)
[2020-09-19] MEDS ORDERED: IOHEXOL 350 MG/ML 100 ML VIAL. IV ONE (19:45)
[2020-09-19] MEDS ORDERED: CONTRAST GIVEN. MC PRN (19:45)
--- NOTE | 2020-09-19 20:14 | RAD ---
CT arteriogram of the chest. HISTORY: Chest pain, nodule on x-ray CT arteriogram of the chest was done using 100 mL Omnipaque 350 contrast. Sagittal and coronal MIP im ages were reconstructed. There is no mediastinal adenopathy. There is no pleural effusion. The visual ized portions the liver and spleen are unremarkable. Adrenal glands are normal. This study is negativ e for evidence of a pulmonary embolus. Lungs are free of infiltrates. There is mild linear atelectasi s. There is a right lower lobe pulmonary nodule. Nodule is somewhat low in density with a CT number o f 9. A hamartoma is possible. Nodule is smooth and round measuring 1.9 cm in diameter. Nodule was not ed on the study from June. Follow-up study recommended. IMPRESSION: 1. Smooth and round somewhat low-density nodule in the right lower lobe possible hamartoma. Follow-up study recommended. 2. Negative for pulmonary embolus. 3. No infiltrates noted. PQRS Compliance Statement: One or more of the following individualized dose reduction techniques were utilized for this examinat ion: 1. Automated exposure control 2. Adjustment of the mA and/or kV according to patient size 3. Use of iterative reconstruction technique Electronically signed by: Sree Drew MD (09/19/2020 8:11 PM) [facility]
[2020-09-19 20:45] VITALS: BP 120/82
[2020-09-19] MEDS ORDERED: PIOG15TA42 PO (21:06)
[2020-09-19] MEDS ORDERED: PREG200C PO (21:06)
--- NOTE | 2020-09-19 21:19 | NUR ---
Patient admitted to room 210 from ED at 2044. Patient was oriented to room, call light, bed and POC. Patient belongings documented and kept at bedside. Patient assessment completed at this time. Patient resting quietly call light in reach. Will monitor.
[2020-09-19 23:09] VITALS: BP 106/51
[2020-09-20 03:13] VITALS: BP 113/61
[2020-09-20 07:00] VITALS: BP 127/66
--- NOTE | 2020-09-20 09:44 | PDOC1 ---
H & P. DATE OF SERVICE: DATE: 09/20/20 TIME: 09:39 HPI: Mr. Grissom is a 55 year old male with past medical history of hypertension, diabetes, paroxysmal A. fib s/p cardioversion in June, presented to the emergency room with complaint of chest pain. He says the chest pain began approximately 3 days ago, is located in the left side of the chest, and is burning in nature, and nearly constant with fluctuating intensity. He denies improvement in pain with peptobismol. He reports he is unable to tolerated omeprazole or pantoprazole due to abdominal pain (??). Pain is associated with nausea, vomiting, diarrhea. He notes that all symptoms have resolved as of this morning. EKG in the ER was unremarkable for ST changes or T wave inversions. Troponins x3 were negative. Labs were remarkable only for mild leukocytosis with left shift. A chest x-ray was remarkable only for a 1.5 cm lung mass in the right midlung, which appeared to be stable from a prior CT. A CTA was also performed and showed the lung mass is suspected to be hamartoma. He was admitted for further evaluation with cardiology consult. 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 Hx of meth and cocaine abuse, clean for some years. Daily MJ use. Denies alcohol use. MEDS: Reviewed and reconciled ALLERGIES: Reviewed PE: Alert, oriented, no acute distress EOMI, sclera non-icteric Neck supple RRR, no murmur CTAB, no wheezes, crackles or rhonchi Soft, NT, ND, normal bowel sounds, no rebound, guarding. No edema, cyanosis. Normal capillary refill. Calm, cooperative, mood/affect within normal limits ASSESSMENT & PLAN: Chest pain, suspect related to GERD Hypertension Diabetes Paroxysmal A. fib Right midlung nodule, 1.5 cm, likely hamartoma Cardiology has been consulted and given recent stress test that was negative, no further work up is needed at this time. Will dc home with famotidine as he is unable to tolerate PPIs per his report. Discussed foods to avoid. Follow up with Dr. Hanson this week. Justifications for Admission Other Justification TRUSTY,AHMET Mcduffie MD September 20, 2020 09:44
--- NOTE | 2020-09-20 10:35 | PDOC2 ---
CONSULT Date of Consult Date of Consult DATE: 09/20/20 TIME: 10:34 Reason for Consult Reason for Consult: Chest pain Referring Physician Referring Physician: Dr. Marie Identification/Chief Complaint Chief Complaint Chest pain Source Source: Chart review, Patient History of Present Illness Reason for Visit: 55-year-old male with history of paroxysmal atrial fibrillation/flutter s/p ARLEY guided cardioversion in June 2020 for difficult to control heart rate presented complaining of retrosternal chest pain that he described as burning in sensation not related to exertion and usually associated with food intake. He has history of gastroesophageal reflux disease and thinks his chest pain might be secondary to that. He denied any orthopnea/PND, palpitations or syncope. His chest pain has resolved since admission. Past Medical History Cardiovascular: AFIB, HTN, Hyperlipidemia Pulmonary: No pertinent hx CENTRAL NERVOUS SYSTEM: Carpal Tunnel Syndrome, Periperal neuropathy GI: No pertinent hx Heme/Onc: No pertinent hx Hepatobiliary: No pertinent hx Psych: No pertinent hx Musculoskeletal: Osteoarthritis Rheumatologic: No pertinent hx Infectious disease: Other Renal/: Chronic renal insuff Endocrine: Diabetes Past Surgical History Past Surgical History: Tonsillectomy Family History Family History: Coronary Artery Disease, Other Social History ALCOHOL: other Drugs: Marijuana Lives: with Family Current Problem List Problem List Problems Medical Problems: (1) Chest pain Status: Acute (2) Diarrhea Status: Acute (3) Lung nodule Status: Acute (4) Nausea & vomiting Status: Acute Current Medications Current Medications Current Medications Ondansetron HCl (Zofran) 4 mg 1X ONCE IVP Last administered on 09/19/20at 18:10; Start 09/19/20 at 17:45; Stop 09/19/20 at 17:46; Status DC Famotidine (Pepcid Vial) 40 mg 1X ONCE IVP Last administered on 09/19/20at 18:11; Start 09/19/20 at 17:45; Stop 09/19/20 at 17:46; Status DC Aspirin (Aspirin Chewable) 324 mg 1X ONCE PO Last administered on 09/19/20at 1 8:11; Start 09/19/20 at 17:45; Stop 09/19/20 at 17:46; Status DC Sodium Chloride 1,000 ml @ 1,000 mls/hr 1X ONCE IV Last administered on 09/19/20at 18:10; Start 09/19/20 at 17:45; Stop 09/19/20 at 18:44; Status DC Nitroglycerin (Nitrostat) 0.4 mg PRN Q5MIN PRN SL CHEST PAIN Last administered on 09/19/20at 19:09; Start 09/19/20 at 19:00 Morphine Sulfate (Morphine Sulfate) 4 mg 1X ONCE IV Last administered on 09/19/20at 19:09; Start 09/19/20 at 19:00; Stop 09/19/20 at 19:01; Status DC Iohexol (Omnipaque 350 Mg/ml) 100 ml 1X ONCE IV Last administered on 09/19/20at 19:58; Start 09/19/20 at 19:45; Stop 09/19/20 at 19:46; Status DC Info (CONTRAST GIVEN -- Rx MONITORING) 1 each PRN DAILY PRN MC SEE COMMENTS; Start 09/19/20 at 19:45; Stop 09/21/20 at 19:44 Ondansetron HCl (Zofran) 4 mg PRN Q8HRS PRN IV NAUSEA/VOMITING; Start 09/19/20 at 19:45; Stop 09/20/20 at 19:44 Morphine Sulfate (Morphine Sulfate) 4 mg PRN Q2HR PRN IV PAIN; Start 09/19/20 at 19:45; Stop 09/20/20 at 19:44 Active Scripts Active Reported Actos (Pioglitazone Hcl) 15 Mg Tablet 1 Tab PO DAILY 30 Days Lyrica (Pregabalin) 200 Mg Capsule 1 Cap PO BID Atorvastatin Calcium 20 Mg Tablet 20 Mg PO HS Eliquis (Apixaban) 5 Mg Tablet 5 Mg PO BID Lisinopril 5 Mg Tablet 1 Tab PO DAILY Toprol Xl (Metoprolol Succinate) 100 Mg Tab.er.24h 1 Tab PO DAILY 30 Days Trazodone Hcl 50 Mg Tablet 1 Tab PO QHS Allergies Allergies: Coded Allergies: No Known Drug Allergies (Unverified , 06/17/20) ROS PSYCHOLOGICAL ROS: No: Hallucinations Eyes: No Loss of vision HEENT: No: Epistaxis Respiratory: No: Hemoptysis, Shortness of breath Cardiovascular: yes Chest Pain Gastrointestinal: No Vomiting Neurological: No Seizures Skin: No Rash Physical Exam General: Alert, Oriented X3 HEENT: Atraumatic Lungs: Clear to auscultation Heart: Regular rate Abdomen: Soft, No tenderness Extremities: No edema Neuro: Normal speech Psych/Mental Status: Mood NL Vitals VITALS Vital Signs Date Time Temp Pulse Resp B/P (MAP) Pulse Ox O2 Delivery O2 Flow Rate FiO2 09/20/20 08:00 Room Air 09/20/20 07:00 98.1 61 16 127/66 (86) 95 98.1 Labs Labs Laboratory Tests Test 09/19/20 17:36 09/19/20 20:38 09/20/20 01:40 09/20/20 08:18 White Blood Count 13.5 x10^3/uL (4.0-11.0) Red Blood Count 5.38 x10^6/uL (4.30-5.70) Hemoglobin 15.8 g/dL (13.0-17.5) Hematocrit 45.7 % (39.0-53.0) Mean Corpuscular Volume 85 fL (79-100) Mean Corpuscular Hemoglobin 29 pg (25-35) Mean Corpuscular Hemoglobin Concent 35 g/dL (31-37) Red Cell Distribution Width 13.1 % (11.5-14.5) Platelet Count 361 x10^3/uL (140-400) Neutrophils (%) (Auto) 86 % (31-73) Lymphocytes (%) (Auto) 9 % (24-48) Monocytes (%) (Auto) 5 % (0-9) Eosinophils (%) (Auto) 0 % (0-3) Basophils (%) (Auto) 0 % (0-3) Neutrophils # (Auto) 11.5 x10^3/uL (1.8-7.7) Lymphocytes # (Auto) 1.2 x10^3/uL (1.0-4.8) Monocytes # (Auto) 0.7 x10^3/uL (0.0-1.1) Eosinophils # (Auto) 0.0 x10^3/uL (0.0-0.7) Basophils # (Auto) 0.0 x10^3/uL (0.0-0.2) Segmented Neutrophils % 76 % (35-66) Band Neutrophils % 6 % (0-9) Lymphocytes % 13 % (24-48) Monocytes % 4 % (0-10) Eosinophils % 1 % (0-5) Platelet Estimate Adequate (ADEQUATE) Sodium Level 140 mmol/L (136-145) Potassium Level 4.1 mmol/L (3.5-5.1) Chloride Level 100 mmol/L (98-107) Carbon Dioxide Level 30 mmol/L (21-32) Anion Gap 10 (6-14) Blood Urea Nitrogen 17 mg/dL (8-26) Creatinine 0.9 mg/dL (0.7-1.3) Estimated GFR (Cockcroft-Gault) 87.6 BUN/Creatinine Ratio 19 (6-20) Glucose Level 222 mg/dL (70-99) Calcium Level 9.2 mg/dL (8.5-10.1) Total Bilirubin 0.7 mg/dL (0.2-1.0) Aspartate Amino Transf (AST/SGOT) 17 U/L (15-37) Alanine Aminotransferase (ALT/SGPT) 31 U/L (16-63) Alkaline Phosphatase 99 U/L (46-116) Troponin I Quantitative < 0.017 ng/mL (0.000-0.055) < 0.017 ng/mL (0.000-0.055) < 0.017 ng/mL (0.000-0.055) Total Protein 7.3 g/dL (6.4-8.2) Albumin 4.0 g/dL (3.4-5.0) Albumin/Globulin Ratio 1.2 (1.0-1.7) Glucose (Fingerstick) 130 mg/dL (70-99) Laboratory Tests Test 09/19/20 17:36 09/19/20 20:38 09/20/20 01:40 09/20/20 08:18 White Blood Count 13.5 x10^3/uL (4.0-11.0) Red Blood Count 5.38 x10^6/uL (4.30-5.70) Hemoglobin 15.8 g/dL (13.0-17.5) Hematocrit 45.7 % (39.0-53.0) Mean Corpuscular Volume 85 fL (79-100) Mean Corpuscular Hemoglobin 29 pg (25-35) Mean Corpuscular Hemoglobin Concent 35 g/dL (31-37) Red Cell Distribution Width 13.1 % (11.5-14.5) Platelet Count 361 x10^3/uL (140-400) Neutrophils (%) (Auto) 86 % (31-73) Lymphocytes (%) (Auto) 9 % (24-48) Monocytes (%) (Auto) 5 % (0-9) Eosinophils (%) (Auto) 0 % (0-3) Basophils (%) (Auto) 0 % (0-3) Neutrophils # (Auto) 11.5 x10^3/uL (1.8-7.7) Lymphocytes # (Auto) 1.2 x10^3/uL (1.0-4.8) Monocytes # (Auto) 0.7 x10^3/uL (0.0-1.1) Eosinophils # (Auto) 0.0 x10^3/uL (0.0-0.7) Basophils # (Auto) 0.0 x10^3/uL (0.0-0.2) Segmented Neutrophils % 76 % (35-66) Band Neutrophils % 6 % (0-9) Lymphocytes % 13 % (24-48) Monocytes % 4 % (0-10) Eosinophils % 1 % (0-5) Platelet Estimate Adequate (ADEQUATE) Sodium Level 140 mmol/L (136-145) Potassium Level 4.1 mmol/L (3.5-5.1) Chloride Level 100 mmol/L (98-107) Carbon Dioxide Level 30 mmol/L (21-32) Anion Gap 10 (6-14) Blood Urea Nitrogen 17 mg/dL (8-26) Creatinine 0.9 mg/dL (0.7-1.3) Estimated GFR (Cockcroft-Gault) 87.6 BUN/Creatinine Ratio 19 (6-20) Glucose Level 222 mg/dL (70-99) Calcium Level 9.2 mg/dL (8.5-10.1) Total Bilirubin 0.7 mg/dL (0.2-1.0) Aspartate Amino Transf (AST/SGOT) 17 U/L (15-37) Alanine Aminotransferase (ALT/SGPT) 31 U/L (16-63) Alkaline Phosphatase 99 U/L (46-116) Troponin I Quantitative < 0.017 ng/mL (0.000-0.055) < 0.017 ng/mL (0.000-0.055) < 0.017 ng/mL (0.000-0.055) Total Protein 7.3 g/dL (6.4-8.2) Albumin 4.0 g/dL (3.4-5.0) Albumin/Globulin Ratio 1.2 (1.0-1.7) Glucose (Fingerstick) 130 mg/dL (70-99) Assessment/Plan Assessment/Plan 1. Chest pain with atypical features and most probably GI etiology. Myocardial infarction has been ruled out. 2D echo in June 2020 showed LVEF 55% and Lexiscan nuclear stress test in August 2020 did not show any significant ischemia. Agree with initiating Pepcid. Okay for discharge from cardiac standpoint and follow-up with our office as scheduled. 2. Paroxysmal atrial fibrillation/flutter s/p ARLEY guided cardioversion in June 2020, presently maintaining sinus rhythm. Continue Eliquis for stroke prophylaxis. 3. Hypertension: Controlled 4. Hyperlipidemia: Continue statin therapy 5. Diabetes mellitus type 2: Treat per IM Thank you for your consultation ROBYN FIGUEROA MD September 20, 2020 10:35
[2020-09-20 11:00] VITALS: BP 119/72
[2020-09-20] MEDS ORDERED: PANTOPRAZOLE 40 MG TABLET.DR. PO SCH (11:30)
[2020-09-20] MEDS ORDERED: FAMOTIDINE 20 MG TABLET. PO SCH (11:30)
[2020-09-20] MEDS ORDERED: ONDA4TAB7 PO (11:31)
[2020-09-20] MEDS ORDERED: FAMO20TA5 PO (11:31)
--- NOTE | 2020-09-20 15:07 | NUR ---
Discharge Note: [facility]CTOR[facility] [place] Discharge instructions and discharge home medications reviewed with Patient and a copy given. All questions have been answered and understanding verbalized. Instructions and handouts were given. Discontinued lines and drains. Patient discharged to home self care.
== END 2020-09-20 15:13 | disposition home or self-care (01) ==
LOC: ER 17:23 → 2 NORTH 20:03
PROVIDERS: ADMIT Family Medicine; ATTEND Family Medicine
DX: R07.89 Other chest pain (principal); I48.0 Paroxysmal atrial fibrillation; I12.9 Hypertensive chronic kidney disease with stage 1 through stage 4 chronic kidney disease, or unspecified chronic kidney disease; N18.9 Chronic kidney disease, unspecified; I48.92 Unspecified atrial flutter; M19.90 Unspecified osteoarthritis, unspecified site; E11.22 Type 2 diabetes mellitus with diabetic chronic kidney disease; E78.5 Hyperlipidemia, unspecified; R91.1 Solitary pulmonary nodule; R19.7 Diarrhea, unspecified; R11.2 Nausea with vomiting, unspecified; Z79.01 Long term (current) use of anticoagulants; Z87.891 Personal history of nicotine dependence; Z79.82 Long term (current) use of aspirin
CPT/HCPCS: 36415; 71045; 71275; 80053; 82962; 84484; 85007; 85025; 93005; 96361; 96374; 96375; 99285; G0378; J2270; J2405; J3490; J7030; Q9967; G0379

== ENCOUNTER → 2021-07-07 | Outpatient (CLI) | payer OTHER ==
[~2021-07-07] MED LIST changes: +FAMO20TA5 PO; -LISI-517 PO; +LISI5TAB15 PO; +ONDA4TAB7 PO; +PIOG15TA42 PO; +PREG200C PO
--- NOTE | 2021-07-07 13:05 | CARD ---
MR#: [id number] Date of Study: 07/07/2021 Ordering Physician: ROBYN FIGUEROA, Referring Physician: ROBYN FIGUEROA Tech: Valeri Kerns LUISANA APPROVED REPORT EXAM: Two-dimensional and M-mode echocardiogram with Doppler and color Doppler. Other Information Quality : AverageHR: 59bpm Rhythm : NSR INDICATION Atrial Fibrillation RISK FACTORS Hypertension Hyperlipidemia 2D DIMENSIONS RVDd3.8 (2.9-3.5cm)Left Atrium(2D)4.2 (1.6-4.0cm) IVSd1.0 (0.7-1.1cm)Aortic Root(2D)3.5 (2.0-3.7cm) LVDd4.5 (3.9-5.9cm)LVOT Diameter2.5 (1.8-2.4cm) PWd1.1 (0.7-1.1cm)LVDs2.7 (2.5-4.0cm) FS (%) 40.1 %SV66.7 ml Aortic Valve AoV Peak Pee.142.2cm/sAoV VTI32.4cm AO Peak GR.8.1mmHgLVOT Peak Pee.118.2cm/s AO Mean GR.4mmHgAVA (VMAX)4.09cm2 Mitral Valve MV E Qwukzwgh10.3cm/sMV DECEL [id number] MV A Vqwlzlqp96.3cm/sE/A Ratio1.3 Pulmonary Valve PV Peak Xooeeuif103.5cm/s LEFT VENTRICLE The left ventricle is normal size. There is borderline concentric left ventricular hypertrophy. The l eft ventricular systolic function is normal and the ejection fraction is within normal range. LV ejec tion fraction of 55 to 60%. There is normal LV segmental wall motion. The left ventricular diastolic function and filling is normal for age. RIGHT VENTRICLE The right ventricle is normal size. There is normal right ventricular wall thickness. The right ventr icular systolic function is normal. ATRIA The left atrium size is normal. The right atrium size is normal. The interatrial septum is intact wit h no evidence for an atrial septal defect or patent foramen ovale as noted on 2-D or Doppler imaging. AORTIC VALVE The aortic valve is thickened but opens well. Doppler and Color Flow revealed no significant aortic r egurgitation. There is no significant aortic valvular stenosis. MITRAL VALVE The mitral valve is normal in structure and function. There is no evidence of mitral valve prolapse. There is no mitral valve stenosis. Doppler and Color-flow revealed mild mitral regurgitation. TRICUSPID VALVE The tricuspid valve is normal in structure and function. Doppler and Color Flow revealed no tricuspid valve regurgitation noted. There is no tricuspid valve stenosis. PULMONIC VALVE The pulmonary valve is normal in structure and function. Doppler and Color Flow revealed no pulmonic valvular regurgitation. GREAT VESSELS The aortic root is normal in size. The ascending aorta is normal in size. The IVC is normal in size a nd collapses >50% with inspiration. PERICARDIAL EFFUSION There is no evidence of significant pericardial effusion. Critical Notification Critical Value: No <Conclusion> The left ventricle is normal size. The left ventricular systolic function is normal and the ejection fraction is within normal range. LV ejection fraction of 55 to 60%. There is borderline concentric left ventricular hypertrophy. Doppler and Color Flow revealed no significant aortic regurgitation. There is no significant aortic valvular stenosis. Doppler and Color-flow revealed mild mitral regurgitation. Doppler and Color Flow revealed no tricuspid valve regurgitation noted. Signed by : Scooter Cruz MD Electronically Approved : 07/07/2021 13:04:50
== END ==
LOC: ECHO 08:18
PROVIDERS: ATTEND Internal Medicine Cardiovascular Disease
DX: I08.0 Rheumatic disorders of both mitral and aortic valves (principal); I48.92 Unspecified atrial flutter
CPT/HCPCS: 93306; C8929